=== PATIENT | female | born 1955 | race Hispanic/Latino ===

== ENCOUNTER 2019-11-20 05:46 | Day surgery (SDC) | payer MEDICARE ==
[~2019-11-20] VITALS: Ht 157.5 cm; Wt 74.4 kg
[~2019-11-20 05:46] MED LIST: ALEN70TA2 PO; ATOR10TA PO; CALC-1038 PO; MAGN500C15 PO; VITAMIN D2
[2019-11-20] MEDS ORDERED: SODIUM CHLORIDE 0.9% 1000ML 1,000 ML IV ONE (06:20)
[2019-11-20 06:51] VITALS: BP 123/66
[2019-11-20] MEDS ORDERED: PROPOFOL 10 MG/ML 20ML VIAL IV ONE (07:18)
[2019-11-20] MEDS ORDERED: LIDOCAINE HCL 2% 20ML ONE (07:19)
[2019-11-20 07:42] VITALS: BP 98/54
[2019-11-20 07:47] VITALS: BP 111/54
[2019-11-20 07:52] VITALS: BP 116/70
[2019-11-20 07:57] VITALS: BP 120/76
== END 2019-11-20 08:08 | disposition home or self-care (01) ==
LOC: DAH 05:46 → ENDO 05:46
PROVIDERS: ATTEND Internal Medicine Gastroenterology
DX: Z12.11 Encounter for screening for malignant neoplasm of colon (principal); D12.2 Benign neoplasm of ascending colon; D12.3 Benign neoplasm of transverse colon; I10 Essential (primary) hypertension; E78.5 Hyperlipidemia, unspecified; K21.9 Gastro-esophageal reflux disease without esophagitis; Z79.899 Other long term (current) drug therapy; Z98.890 Other specified postprocedural states; Z86.010 Personal history of colon polyps; Z82.49 Family history of ischemic heart disease and other diseases of the circulatory system; Z82.3 Family history of stroke; Z83.3 Family history of diabetes mellitus
CPT/HCPCS: 45380; 45385; A4215; A4221; A4222; A4223; A4606; A4615; A4663; J2704; J3490; J7030